=== PATIENT | female | born 1990 | race Caucasian/White ===

== ENCOUNTER 2022-10-09 13:18 | Emergency (ER) | payer OTHER ==
[~2022-10-09] VITALS: Ht 157.5 cm; Wt 99.8 kg
[2022-10-09] MEDS ORDERED: PEPCID AC20 MG PO (19:42)
[2022-10-09] MEDS ORDERED: CIPRO500 MG PO (19:42)
== END 2022-10-09 19:47 | disposition home or self-care (01) ==
LOC: ER 13:18
DX: N39.0 Urinary tract infection, site not specified (principal); B96.89 Other specified bacterial agents as the cause of diseases classified elsewhere; R10.9 Unspecified abdominal pain; Z20.822 Contact with and (suspected) exposure to COVID-19